=== PATIENT | male | born 1965 ===

== ENCOUNTER 2021-10-30 16:02 | Emergency (ER) | payer BC, SELFPAY ==
[2021-10-30 16:10] VITALS: BP 137/83; PULSE 89; RESP 16; TEMP 36.8; O2SAT 98
--- NOTE | 2021-10-30 16:11 | ED.WOUNDLAC ---
HPI - Wound/Laceration General Chief Complaint: Wound/Laceration Stated Complaint: left leg cuts Time Seen by Provider: 10/30/21 16:12 Source: patient Mode of arrival: ambulatory Limitations: no limitations History of Present Illness HPI narrative: Mr. Ashton is a 56-year-old male patient presenting to the clinic today with complaints 4 lacerations to the left lower leg. He reports that he was cutting a tree and it fell and cut his left thigh and knee. Tetanus shot is within 6 to 7 years. Related Data Allergies Allergy/AdvReac Type Severity Reaction Status Date / Time No Known Allergies Allergy Verified 10/30/21 16:24 Review of Systems Review of Systems: Pertinent positives per HPI. Patient denies any fever, chills, rash, headache, visual changes, dizziness, cough, runny nose, sore throat, shortness of breath, chest pain, palpitations, nausea, vomiting, diarrhea, constipation, abdominal pain, or any urinary issues. PMFSH Comments At the time of my signature, I reviewed and agree with the nursing past medical, surgical, social, and family history. There is no relevant family history pertinent to the patient complaint. Exam Narrative: General: Well-developed, well nourished, in no apparent distress Head: Normocephalic, atraumatic. Cardio: Regular rate and rhythm, s1 and s2 normal, no murmur appreciated. Resp: Clear to auscultation bilaterally, no rhonchi, rales, wheezing or rubs. Integumentary: [place], warm, and dry, 4 vertical lacerations to his left leg. 2 lacerations measuring 6.5cm and 5.5 cm are to the left anterior/lateral thigh and the third and fourth laceration measuring 3.0 cm and 3.5 cm is just below the left lateral anterior knee. Bleeding is controlled Course Course Emergency Course: Portions of this record may have been created with voice recognition software. Level of Care: Express Care Visit Vital Signs Vital signs: Vital Signs Temperature 36.8 C 10/30/21 16:10 Pulse Rate 89 10/30/21 16:10 Respiratory Rate 16 10/30/21 16:10 Blood Pressure 137/83 10/30/21 16:10 Pulse Oximetry 98 10/30/21 16:10 Temperature 36.8 C 10/30/21 16:10 Pulse Rate 89 10/30/21 16:10 Respiratory Rate 16 10/30/21 16:10 Blood Pressure 137/83 10/30/21 16:10 Pulse Oximetry 98 10/30/21 16:10 Vital signs reviewed Procedures Laceration Laceration 1: Date: 10/30/21 Site: lower extremity Side (If applicable): left Description: linear Depth: simple, single layer Local Anesthetic: lidocaine 1% and with epi Amount of anesthesia used (mL): 17 Pre-repair: wound explored, irrigated and irrigated extensively ====== Skin Level ====== ====== Subcutaneous Layer ====== ====== Muscle Layer ====== ====== Tendon Layer ====== Dressing: Verbal consent obtained for laceration repair. Risk and benefits explained and patient voiced understanding. Area was cleansed with technic care and was irrigated with Dermaclens, a 27-gauge needle was then used to instill 17 mL of lidocaine to the wound edges of all 4 lacerations. Anesthesia was appropriate. Prepped and draped using sterile technique. A 4-0 suture on a p3 needle was used to place (a total of 17) interrupted sutures to bring the wound edges together- well approximated. Patient tolerated procedure well. Sterile dressing applied. MDM - Wound/Laceration MDM Narrative Medical decision making narrative: At the time of visit patient is resting comfortably on the exam table. He has 4 lacerations to the left thigh and just below the left knee. Laceration was well irrigated with Dermaclens and technic care. 17 interrupted sutures were used close these wounds, wounds were closed well approximated. We will go ahead and give a prescription for some Keflex since this cut is a little deeper and dirty. Differential Diagnosis Differential diagnosis: Likely laceration and avulsion of skin D
== END 2021-10-30 17:25 | disposition home or self-care (01) ==
PROVIDERS: Emergency Provider Nurse Practitioner Family; PCP Emergency Medicine
DX: S71.112A Laceration without foreign body, left thigh, initial encounter (principal); S81.012A Laceration without foreign body, left knee, initial encounter; W20.8XXA Other cause of strike by thrown, projected or falling object, initial encounter
CPT/HCPCS: 12005; 99213; G0463; L1830